=== PATIENT | female | born 1995 | race Caucasian/White ===

== ENCOUNTER 2017-08-15 07:40 | Outpatient (CLI) | payer OTHER | END 2017-08-15 07:41 | disposition home or self-care (01) | LOC: BICULT 07:40 | PROVIDERS: ATTEND Nurse Practitioner Women's Health | DX: R10.2 Pelvic and perineal pain (principal); Z97.5 Presence of (intrauterine) contraceptive device | CPT/HCPCS: 76856; 93976 ==

== ENCOUNTER 2017-09-29 13:35 | Emergency (ER) | payer OTHER ==
[2017-09-29] MEDS ORDERED: Ondansetron HCl/PF 4 MG/2 ML Vial ONE (14:31)
[2017-09-29] MEDS ORDERED: Morphine 4 MG/ML VIAL ONE (14:33)
[2017-09-29 14:45] LABS: Bilirubin Small (Negative); Blood, Urine Large (Negative); Glucose, Urine (Dipstick) Negative (Negative); Hemoglobin 15.7 g/dL (12.0-16.0); Leukocyte Negative (Negative); Mean Corpuscular HGB CONC 35.5 g/dL (32.0-36.0); Mean Corpuscular Hemoglobin 32.5 pg (25.0-35.0); Mean Corpuscular Volume 91.5 fL (78.0-98.0); Mean Platelet Volume 8.3 fL (7.4-10.4); Nitrite Negative (Negative); Platelet Count 167 thou/uL (130-400); Protein, Urine (Dipstick) 30 mg/dL (Neg-Trace); RBC Distribution Width 11.9 % (11.5-14.5); Red Blood Cell (RBC) Count 4.84 mill/uL (4.00-5.20); Urobilinogen 0.2 mg/dL (0.2-1.0); White Blood Cell (WBC) Count 11.8 thou/uL (4.8-10.8)
[2017-09-29 14:46] LABS: Pregnancy Test - Urine (BHCG) Negative (Negative); Pregu Control Background? CLEAR/WHITE (CLR/WHITE); Pregu Control Bar Appear? YES (CONTROL BAR); Specific Gravity 1.026 (1.002-1.036)
[2017-09-29 14:47] LABS: Clarity Cloudy (Clear); Specific Gravity, Urine 1.026 (1.002-1.036)
[2017-09-29 14:54] LABS: RBC/HPF GREATER THAN 50-TNTC HPF (0-3)
[2017-09-29 14:55] LABS: Bacteria/HPF Rare-Few HPF (None Seen); Hyaline Casts/LPF NONE SEEN LPF (0-3 Hyaline); Squamous Epithelial 21-50 HPF (0-3)
[2017-09-29] MEDS ORDERED: ISOVUE-370 76%-LOCM 1 ML ONE (14:56)
[2017-09-29 15:01] LABS: Lactic Acid 1.3 mmol/L (0.5-2.2)
[2017-09-29 15:05] LABS: ALT (SGPT) 12 U/L (8-55); AST (SGOT) 14 U/L (5-34); Albumin 5.3 g/dL (3.5-5.0); Alkaline Phosphatase 80 U/L (40-150); Anion Gap 11 mmol/L (10-20); BUN (Urea Nitrogen) 10 mg/dL (7.0-18.7); Bilirubin, Total 1.1 mg/dL (0.2-1.2); Calc. Creatinine Clearance 0 mL/min (70-130); Calcium 9.9 mg/dL (7.8-10.44); Carbon Dioxide 26 mmol/L (22-29); Chloride 105 mmol/L (98-107); Estimated GFR-MDRD 88; Globulin 3.3 g/dL (2.4-3.5); Glucose 92 mg/dL (70-105); Lipase 14 U/L (8-78); Potassium 3.9 mmol/L (3.5-5.1); Protein, Total 8.6 g/dL (6.0-8.3); Sodium 138 mmol/L (136-145)
[2017-09-29 15:08] LABS: Band 4 % (5-11); Eosinophils 1 % (0-10); Lymphocytes 5 % (28-48); MDiff Complete? YES; Monocytes 1 % (0-4); Neutrophil 87 % (31-61); PLT Morphology Comment Appears Adequate; RBC Morphology Normal; Reactive Lymphocytes 1 % (0-10)
--- NOTE | 2017-09-29 15:43 | CT ---
CT ABDOMEN AND PELVIS WITH IV CONTRAST: HISTORY: Abdominal pain and vomiting. FINDINGS: Absence of oral contrast reduces the sensitivity of the exam for evaluation of bowel. The lung bases are clear. No free air, free fluid, or lymphadenopathy is seen in the abdomen or pelv is. An IUD is present. The liver, spleen, pancreas, adrenal glands, and kidneys are normal. No sunita cified gallstones are identified. Abnormal appendix is not definitely identified. IMPRESSION: No definite evidence of acute process. POS: [facility]
[2017-09-29] MEDS ORDERED: cefTRIAXone\\ROCEPHIN 250 MG VIAL ONE (16:14)
[2017-09-29] MEDS ORDERED: Lidocaine 1% PF 5 ML VIAL ONE (16:14)
[2017-09-30 20:00] LABS: Chlamydia by PCR Not Detected (NotDetected); GC by PCR Not Detected (NotDetected)
== END 2017-09-29 16:35 | disposition home or self-care (01) ==
LOC: ERS 13:35
DX: N73.9 Female pelvic inflammatory disease, unspecified (principal); N93.9 Abnormal uterine and vaginal bleeding, unspecified; R11.2 Nausea with vomiting, unspecified; I37.0 Nonrheumatic pulmonary valve stenosis
CPT/HCPCS: 74177; 80053; 81003; 81015; 81025; 83605; 83690; 85025; 87480; 87491; 87510; 87591; 87660; 96361; 96372; 96374; 96375; J0696; J2001; J2270; J2405

== ENCOUNTER 2018-04-16 21:56 | Emergency (ER) | payer OTHER ==
[2018-04-16] MEDS ORDERED: Ondansetron ODT 4 MG TAB ONE (23:00)
== END 2018-04-16 23:04 | disposition home or self-care (01) ==
LOC: ERS 21:56
DX: J10.1 Influenza due to other identified influenza virus with other respiratory manifestations (principal); R11.10 Vomiting, unspecified
CPT/HCPCS: 87804; 99283; Q0162

== ENCOUNTER 2018-07-05 16:01 | Emergency (ER) | payer OTHER, SELFPAY ==
[2018-07-05 16:43] LABS: #Basophils 0.1 thou/uL (0.0-0.2); #Lymphocytes 1.6 thou/uL (1.20-3.40); #Monocytes 0.5 thou/uL (0.11-0.59); #Neutrophils 11.7 thou/uL (1.40-6.50); %Basophils 0.4 % (0.0-1.0); %Eosinophils 0.4 % (0.0-10.0); %Lymphocytes 11.5 % (28.0-48.0); %Monocytes 3.4 % (0.0-4.0); %Neutrophils 84.3 % (31.0-61.0); Mean Corpuscular HGB CONC 33.4 g/dL (32.0-36.0); Mean Corpuscular Hemoglobin 31.1 pg (25.0-35.0); Mean Corpuscular Volume 93.3 fL (78.0-98.0); Mean Platelet Volume 7.6 fL (7.4-10.4); Platelet Count 290 thou/uL (130-400); RBC Distribution Width 11.3 % (11.5-14.5); Red Blood Cell (RBC) Count 4.51 mill/uL (4.00-5.20); White Blood Cell (WBC) Count 13.8 thou/uL (4.8-10.8)
[2018-07-05] MEDS ORDERED: Ondansetron ODT 4 MG TAB ONE (16:56)
--- NOTE | 2018-07-05 17:01 | RAD ---
TWO VIEW CHEST 07/05/18 COMPARISON: None. INDICATION: Cough and vomiting. FINDINGS: There is patchy bilateral perihilar opacification without evidence of effusion or pneumothorax. Cardi ac silhouette is normal in size. Osseous structures are intact. IMPRESSION: Patchy bilateral perihilar opacities which may be on the basis of atypical pneumonia in the correct c linical context. POS: C
[2018-07-05 17:06] LABS: ALT (SGPT) 15 U/L (8-55); AST (SGOT) 12 U/L (5-34); Albumin 4.6 g/dL (3.5-5.0); Alkaline Phosphatase 82 U/L (40-150); Anion Gap 13 mmol/L (10-20); BUN (Urea Nitrogen) 7 mg/dL (7.0-18.7); Bilirubin, Total 0.3 mg/dL (0.2-1.2); Calc. Creatinine Clearance 0 mL/min (70-130); Carbon Dioxide 25 mmol/L (22-29); Chloride 104 mmol/L (98-107); Estimated GFR-MDRD Greater than 90; Globulin 3.4 g/dL (2.4-3.5); Glucose 96 mg/dL (70-105); Potassium 3.9 mmol/L (3.5-5.1); Sodium 138 mmol/L (136-145)
== END 2018-07-05 17:28 | disposition home or self-care (01) ==
LOC: ERS 16:01
DX: J18.9 Pneumonia, unspecified organism (principal)
CPT/HCPCS: 36415; 71046; 80053; 85025; Q0162